=== PATIENT | male | born 1950 | race Caucasian/White ===

== ENCOUNTER → 2019-08-17 10:45 | Outpatient (CLI) | payer OTHER, SELFPAY ==
--- NOTE | 2019-08-17 | DI.RAD.S_ITS ---
PROCEDURE: XR THORACIC SPINE 3V INDICATIONS: PAIN IN THORACIC SPINE TECHNIQUE: 3 views of the thoracic spine were acquired. COMPARISON: None. FINDINGS: Bones: No fractures or dislocations. No suspicious bony lesions. Multilevel cervical spondylosis Soft tissues: No paravertebral stripe thickening. IMPRESSION: No fracture Dictated by: Isreal Sotelo M.D. on 08/17/2019 at 12:37 Approved by: Isreal Sotelo M.D. on 08/17/2019 at 12:39
== END ==
PROVIDERS: PCP Family Medicine; Visit Provider Family Medicine
DX: M54.6 Pain in thoracic spine (principal)
CPT/HCPCS: 72072

== ENCOUNTER → 2021-12-06 12:54 | Outpatient (CLI) | payer MEDICARE, OTHER, SELFPAY ==
[2021-12-06 19:15] LABS: Prostate Specific Antigen 0.869 ng/mL (0.10-4.00)
== END ==
PROVIDERS: PCP Family Medicine; Visit Provider Specialist
DX: R97.20 Elevated prostate specific antigen [PSA] (principal)
CPT/HCPCS: 84153

== ENCOUNTER → 2025-05-25 13:02 | Outpatient (CLI) | payer MEDICARE, OTHER, SELFPAY ==
[2025-05-25 20:16] LABS: Prostate Specific Antigen 0.614 ng/mL (0.10-4.00)
== END ==
PROVIDERS: PCP Family Medicine; Visit Provider Urology
DX: R97.20 Elevated prostate specific antigen [PSA] (principal)
CPT/HCPCS: 84153